=== PATIENT | male | born 1940 | race Caucasian/White ===

== ENCOUNTER 2017-09-23 14:28 | Emergency (ER) | payer MEDICARE ==
[2017-09-23 14:45] VITALS: RESP 18
--- NOTE | 2017-09-23 15:31 | ED ---
General Adult HPI - General Source: patient, RN notes reviewed Mode of arrival: ambulatory Limitations: no limitations <Bentley Evans - Last Filed: 09/23/17 15:28> <Timothy Snow - Last Filed: 09/23/17 19:47> - General Chief complaint: Shortness of Breath Stated complaint: Coughing up blood Time Seen by Provider: 09/23/17 15:14 - History of Present Illness Initial comments: Patient is a pleasant 77-year-old male presenting to the emergency Department with hemoptysis. Symptoms started this morning around 11:30 or so. Patient did have 2 episodes, last was less than an hour ago. Patient coughed up bright red blood. No history of similar symptoms previously. No chest pain or shortness of breath. No recent cough or recent illness. No other areas of bleeding. Patient does not take any blood thinners however does take aspirin. Patient does admit to smoking too much. (Bentley Evans) - Related Data Home Medications Medication Instructions Recorded Confirmed Aspirin EC [Ecotrin Low Dose] 81 mg PO DAILY PRN 09/23/17 09/23/17 Ibuprofen [Advil] 200 mg PO DAILY PRN 09/23/17 09/23/17 Allergies Allergy/AdvReac Type Severity Reaction Status Date / Time No Known Allergies Allergy Verified 09/23/17 15:21 Review of Systems ROS Other: All systems not noted in ROS Statement are negative. Constitutional: Denies: fever Eyes: Denies: eye pain ENT: Denies: ear pain Respiratory: Reports: hemoptysis. Denies: cough, dyspnea Cardiovascular: Denies: chest pain, palpitations Endocrine: Denies: fatigue Gastrointestinal: Denies: abdominal pain, vomiting, hematemesis Genitourinary: Denies: dysuria Musculoskeletal: Denies: back pain Skin: Denies: rash Neurological: Denies: weakness <Bentley Evans - Last Filed: 09/23/17 15:28> ROS Other: All systems not noted in ROS Statement are negative. <Timothy Snow - Last Filed: 09/23/17 19:47> ROS Statement: Those systems with pertinent positive or pertinent negative responses have been documented in the HPI. Past Medical History Past Medical History: No Reported History History of Any Multi-Drug Resistant Organisms: None Reported Past Surgical History: No Surgical Hx Reported Past Psychological History: No Psychological Hx Reported Smoking Status: Current every day smoker Past Alcohol Use History: None Reported Past Drug Use History: None Reported <Bentley Evans - Last Filed: 09/23/17 15:28> General Exam Limitations: no limitations General appearance: alert, in no apparent distress Head exam: Present: atraumatic Eye exam: Present: normal appearance, PERRL ENT exam: Present: normal oropharynx Neck exam: Present: normal inspection Respiratory exam: Present: normal lung sounds bilaterally. Absent: respiratory distress, wheezes, decreased breath sounds Cardiovascular Exam: Present: regular rate, normal rhythm GI/Abdominal exam: Present: soft. Absent: tenderness Extremities exam: Present: normal inspection. Absent: pedal edema, calf tenderness Back exam: Present: normal inspection Neurological exam: Present: alert Psychiatric exam: Present: normal affect, normal mood Skin exam: Present: normal color <Bentley Evans - Last Filed: 09/23/17 15:28> Vital Signs 09/23/17 09/23/17 09/23/17 14:41 17:59 18:55 Temperature 98.6 F 97 F L Pulse Rate 63 53 L 62 Respiratory 18 18 18 Rate Blood Pressure 193/90 191/84 203/93 O2 Sat by Pulse 95 97 97 Oximetry 09/23/17 19:43 Temperature 98.2 F Pulse Rate 60 Respiratory 18 Rate Blood Pressure 183/87 O2 Sat by Pulse 96 Oximetry EKG Findings - EKG Comments: EKG Findings:: Sinus bradycardia 53. TN 150. QRS 98. QT 440. QTc 412. Normal axis. Normal QRS. No acute ST change. <Bentley Evans - Last Filed: 09/23/17 15:28> Medical Decision Making <Bentley Evans - Last Filed: 09/23/17 15:28> - Lab Data Result diagrams: 09/23/17 15:05 09/23/17 15:05 <Timothy Snow - Last Filed: 09/23/17 19:47> - Medical Decision Making This was discussed with patient family members regarding the findings patient's chosen to not be admitted though he was offered admission today. He will follow -up with pulmonary and oncology states he needs to find out through his insurance coming who is doctor is. He is encourage invited to come back if any problems or continued hemoptysis. (Timothy Snow) - Lab Data Lab Results 07/26/18 07/26/18 07/26/18 Range/Units 15:05 15:05 15:05 WBC 6.7 (3.8-10.6) k/uL RBC 4.50 (4.30-5.90) m/uL Hgb 12.4 L (13.0-17.5) gm/dL Hct 37.5 L (39.0-53.0) % MCV 83.5 (80.0-100.0) fL MCH 27.6 (25.0-35.0) pg MCHC 33.0 (31.0-37.0) g/dL RDW 14.2 (11.5-15.5) % Plt Count 229 (150-450) k/uL Neutrophils % 70 % Lymphocytes % 17 % Monocytes % 9 % Eosinophils % 1 % Basophils % 1 % Neutrophils # 4.7 (1.3-7.7) k/uL Lymphocytes # 1.1 (1.0-4.8) k/uL Monocytes # 0.6 (0-1.0) k/uL Eosinophils # 0.1 (0-0.7) k/uL Basophils # 0.0 (0-0.2) k/uL PT 10.8 (9.0-12.0) sec INR 1.1 (<1.2) APTT 25.9 (22.0-30.0) sec Sodium 134 L (137-145) mmol/L Potassium 4.6 (3.5-5.1) mmol/L Chloride 104 (98-107) mmol/L Carbon Dioxide 22 (22-30) mmol/L Anion Gap 8 mmol/L BUN 15 (9-20) mg/dL Creatinine 0.98 (0.66-1.25) mg/dL Est GFR (CKD-EPI)AfAm 85 (>60 ml/min/1.73 sqM) Est GFR (CKD-EPI)NonAf 74 (>60 ml/min/1.73 sqM) Glucose 119 H (74-99) mg/dL Calcium 9.4 (8.4-10.2) mg/dL Total Bilirubin 0.3 (0.2-1.3) mg/dL AST 26 (17-59) U/L ALT 23 (21-72) U/L Alkaline Phosphatase 44 (38-126) U/L Total Protein 6.3 (6.3-8.2) g/dL Albumin 3.7 (3.5-5.0) g/dL - Radiology Data Interpreted by me: I did review the imaging and report is evidence of 2 masses in the left upper lobe of the lung. No evidence of PE. (Timothy Snow) Disposition <Bentley Evans - Last Filed: 09/23/17 15:28> Is patient prescribed a controlled substance at d/c from ED?: No <Timothy Snow - Last Filed: 09/23/17 19:47> Clinical Impression: Hemoptysis, Mass of left lung, Smoking Disposition: HOME SELF-CARE Condition: Stable Instructions: Hemoptysis (ED), Non-Small Cell Lung Cancer (ED) Referrals: None,Stated [Primary Care Provider] - 1-2 days Timothy Joseph DO [Doctor of Osteopathic Medicine] - 1-2 days Miguel Ambriz MD [STAFF PHYSICIAN] - 1-2 days
[2017-09-23 15:42] LABS: Basophils % (A) 1 %; Eosinophils # (A) 0.1 k/uL (0-0.7); Eosinophils % (A) 1 %; HCT 37.5 % (39.0-53.0); HGB 12.4 gm/dL (13.0-17.5); Lymphocytes # (A) 1.1 k/uL (1.0-4.8); Lymphocytes % (A) 17 %; MCH 27.6 pg (25.0-35.0); MCV 83.5 fL (80.0-100.0); Mean Platelet Volume 7.4; Monocytes # (A) 0.6 k/uL (0-1.0); Monocytes % (A) 9 %; Neutrophils # (A) 4.7 k/uL (1.3-7.7); Neutrophils % (A) 70 %; Platelet Count 229 k/uL (150-450); RDW 14.2 % (11.5-15.5); WBC 6.7 k/uL (3.8-10.6)
[2017-09-23 15:48] LABS: Albumin 3.7 g/dL (3.5-5.0); Calcium 9.4 mg/dL (8.4-10.2); Potassium 4.6 mmol/L (3.5-5.1); Total Bilirubin 0.3 mg/dL (0.2-1.3); Total Protein 6.3 g/dL (6.3-8.2)
[2017-09-23 15:50] LABS: INR 1.1 (<1.2); Partial Thromboplastin Time 25.9 sec (22.0-30.0); Prothrombin Time 10.8 sec (9.0-12.0)
--- NOTE | 2017-09-23 18:54 | CT ---
EXAMINATION TYPE: CT angio chest with contrast and with 3-D reconstruction renderings. DATE OF EXAM: 09/23/2017 5:53 PM COMPARISON: None HISTORY: Hypertension and left lower leg weakness CT DLP: 128.3 mGycm Automated exposure control for dose reduction was used. CONTRAST: CTA scan of the thorax is performed with IV Contrast, patient injected with 100 mL of Isovue 370, pul monary embolism protocol. 3-D reconstructions. FINDINGS: AIRWAYS: Unremarkable. LUNGS: There are adjacent bronchogenic spiculated masses in the left upper lobe, one measuring 2.5 cm mean diameter and the other measuring 2.8 cm mean diameter. The spiculations are circumferential GE to these masses, radiating beyond their measured mean diameter. There are widespread emphysematous ch anges throughout the lungs. There is no evidence of pulmonary edema or pneumonia. PLEURAL SPACES: There is no pleural effusion or pneumothorax seen. MEDIASTINUM: There is satisfactory enhancement of the pulmonary artery and its branches, there is no CT evidence for pulmonary embolism. Pulmonary arterial caliber prominence is noted, which can correla te with pulmonary hypertension. Aortic ectasia noted. There are no greater than 1 cm hilar or mediast inal lymph nodes. Mild cardiomegaly noted, with prominent left and right coronary calcifications. No pericardial effusion is seen. OTHER: No additional significant abnormality is seen. IMPRESSION: 1. TWO LEFT UPPER LOBE BRONCHOGENIC MASSES, HIGHLY SUSPICIOUS FOR BRONCHOGENIC CARCINOMA. 2. NEGATIVE FOR PULMONARY EMBOLISM.
[2017-09-23 19:44] VITALS: BP 183/87; PULSE 60; TEMP 98.2
== END 2017-09-23 19:52 | disposition home or self-care (01) ==
LOC: EC 14:28
DX: R04.2 Hemoptysis (principal); R91.8 Other nonspecific abnormal finding of lung field; F17.200 Nicotine dependence, unspecified, uncomplicated
CPT/HCPCS: 36415; 93005; 80053; 85025; 85610; 85730; 71275; 99285; Q9967

== ENCOUNTER 2018-06-21 08:49 | Day surgery (SDC) | payer MEDICARE ==
[2018-06-21 09:20] LABS: Mean Platelet Volume 7.2; Platelet Count 282 k/uL (150-450)
[2018-06-21 09:47] LABS: Prothrombin Time 10.9 sec (9.0-12.0)
[2018-06-21 10:43] VITALS: TEMP 98
[2018-06-21 13:12] VITALS: BP 178/89; PULSE 55; RESP 18
--- NOTE | 2018-06-21 14:10 | US ---
EXAMINATION TYPE: US biopsy liver DATE OF EXAM: 06/21/2018 HISTORY: Liver masses. FINDINGS: Maximal barrier technique was utilized. The skin overlying a suitable path to the patient' s right lobe dominant liver mass was localized with ultrasound and the overlying skin prepped and mariano ped. Ultrasound was utilized with sterile technique. Lidocaine was used for local anesthesia. A sk in rodger was made with a scalpel. An 18-gauge needle was advanced under direct ultrasound guidance an d core specimen obtained of the mass. Second biopsy performed using similar technique. Specimen subm itted in formalin to Pathology. Following the procedure, hemostasis achieved and the patient is disc harged in stable condition without complication. IMPRESSION:STATUS POST ULTRASOUND GUIDED CORE BIOPSY OF right lobe liver MASS, PATHOLOGY IS PENDING. THIS PROCEDURE IS PERFORMED BY THE UNDERSIGNED.
== END 2018-06-21 14:15 | disposition home or self-care (01) ==
LOC: RADPROMAIN 08:49 → 3NMEDONC 10:16 → RADPROMAIN 14:15
PROVIDERS: ATTEND Internal Medicine Hematology & Oncology
DX: C78.7 Secondary malignant neoplasm of liver and intrahepatic bile duct (principal); C80.1 Malignant (primary) neoplasm, unspecified
CPT/HCPCS: 47000; 76942; 85049; 85610; 88307; 88341; 88342